=== PATIENT | female | born 1990 | race African-American/Black ===

== ENCOUNTER 2017-11-14 14:57 | Emergency (ER) | payer OTHER ==
[2017-11-14 18:36] LABS: HCG, SERUM QUANTITATIVE 1775 MIU/ML
== END 2017-11-14 19:31 | disposition home or self-care (01) ==
LOC: M ED 14:57
DX: O99.89 Other specified diseases and conditions complicating pregnancy, childbirth and the puerperium (principal); N83.201 Unspecified ovarian cyst, right side; Z3A.00 Weeks of gestation of pregnancy not specified
CPT/HCPCS: 76801